=== PATIENT | female | born 1970 | race African-American/Black ===

== ENCOUNTER 2018-05-12 09:57 | Emergency (ER) | payer OTHER ==
[~2018-05-12] VITALS: Ht 170.2 cm; Wt 145.0 kg
[2018-05-12] MEDS ORDERED: METOPROL TAR25 MG PO (10:14)
[2018-05-12] MEDS ORDERED: HYDROCHLOROT12.5 MG PO (10:15)
[2018-05-12] MEDS ORDERED: LOPRESSOR 550 MG/TAB PO (10:38)
[2018-05-12] MEDS ORDERED: HYDROCHLOROT12.5 M1 PO (10:38)
[2018-05-12] MEDS ORDERED: BACLOFEN10 MG PO (10:38)
[2018-05-12] MEDS ORDERED: AUGMENTIN875TAB PO (13:49)
[2018-05-12] MEDS ORDERED: MOTRIN400 MG PO (13:49)
[2018-05-12 14:20] VITALS: BP 121/69
== END 2018-05-12 14:20 | disposition home or self-care (01) | DRG 156 ==
LOC: ED 09:57
DX: S02.2XXA Fracture of nasal bones, initial encounter for closed fracture (principal); S00.81XA Abrasion of other part of head, initial encounter; S71.111A Laceration without foreign body, right thigh, initial encounter; I10 Essential (primary) hypertension; V78.6XXA Passenger on bus injured in noncollision transport accident in traffic accident, initial encounter